=== PATIENT | male | born 1975 | race Caucasian/White ===

== ENCOUNTER 2018-10-09 11:50 | Emergency (ER) | payer OTHER ==
--- NOTE | 2018-10-09 12:10 | ERPHSYRPT ---
- History of Present Illness Time Seen by Provider: 10/09/18 12:10 Source: patient Exam Limitations: no limitations Physician History: 43 y/o white male presents with 4 to 5 day h/o left groin firmness and tenderness. increasing in size. no drainage. has had an abscess drained in the past in same area a couple of times. Timing/Duration: day(s) (4) Quality: painful Severity: mild Location: other (right groin) Possible Causes: no cause identified Associated Symptoms: denies symptoms Allergies/Adverse Reactions: No Known Drug Allergies Allergy (Verified 10/09/18 12:35) - Review of Systems Constitutional: No Symptoms Eyes: No Symptoms Ears, Nose, & Throat: No Symptoms Respiratory: No Symptoms Cardiac: No Symptoms Abdominal/Gastrointestinal: No Symptoms Genitourinary Symptoms: No Symptoms Musculoskeletal: No Symptoms Skin: Other (right groin firmness) Neurological: No Symptoms Psychological: No Symptoms Endocrine: No Symptoms Hematologic/Lymphatic: No Symptoms Immunological/Allergic: No Symptoms - Past Medical History Pertinent Past Medical History: No Neurological History: No Pertinent History ENT History: No Pertinent History Cardiac History: No Pertinent History Respiratory History: No Pertinent History Endocrine Medical History: No Pertinent History Musculoskeletal History: No Pertinent History GI Medical History: No Pertinent History History: No Pertinent History Psycho-Social History: No Pertinent History Male Reproductive Disorders: No Pertinent History - Past Surgical History Neuro Surgical History: No Pertinent History Cardiac: No Pertinent History Respiratory: No Pertinent History Gastrointestinal: No Pertinent History Genitourinary: No Pertinent History Musculoskeletal: No Pertinent History Male Surgical History: No Pertinent History - Nursing Vital Signs Nursing Vital Signs: Initial Vital Signs Temperature 97.9 F 10/09/18 12:10 Pulse Rate 96 H 10/09/18 12:10 Respiratory Rate 18 10/09/18 12:10 Blood Pressure 134/110 10/09/18 12:10 O2 Sat by Pulse Oximetry 99 10/09/18 12:10 Pain Scale Pain Intensity 5 - Physical Exam General Appearance: no apparent distress, alert, anxiety Eye Exam: PERRL/EOMI Ears, Nose, Throat Exam: normal ENT inspection, moist mucous membranes Neck Exam: normal inspection, non-tender, supple, full range of motion Respiratory Exam: normal breath sounds, lungs clear, airway intact, No chest tenderness, No respiratory distress Cardiovascular Exam: regular rate/rhythm Gastrointestinal/Abdomen Exam: soft, normal bowel sounds, No tenderness, No guarding Male Genitalia Exam: other (a vertically oriented 3cm x1.5 cm area of induration between medial thigh and right scrotum. no cellulitis. no abscess. nothing to drain) Rectal Exam: not done Back Exam: normal inspection, normal range of motion, No CVA tenderness, No vertebral tenderness Extremity Exam: normal inspection, normal range of motion, pelvis stable Neurologic Exam: alert, oriented x 3 Skin Exam: normal color, warm, dry, other (see above) Lymphatic Exam: No adenopathy SpO2 Interpretation: normal O2 Delivery: Room Air - Course Nursing assessment & vital signs reviewed: Yes - Progress Progress: unchanged Counseled pt/family regarding: diagnosis, need for follow-up - Departure Time of Disposition: 12:58 Departure Disposition: Home Clinical Impression: Induration of skin Condition: Stable Critical Care Time: No Referrals: NATE DIAS [Primary Care Provider] - Additional Instructions: warm compresses/heating pad on warm setting to area 3 times daily. not directly on skin. follow up with primary doctor for further management Prescriptions: Smz/Tmp Ds Tablet [Bactrim Ds Tablet] 1 udtab PO BID #14 tablet
[2018-10-09 12:22] VITALS: BP 134/110; PULSE 96
[2018-10-09 13:03] VITALS: O2SAT 98
== END 2018-10-09 13:14 | disposition home or self-care (01) ==
LOC: ED 11:50
DX: R23.4 Changes in skin texture (principal); R10.30 Lower abdominal pain, unspecified
CPT/HCPCS: 99283

== ENCOUNTER 2020-01-25 11:36 | Emergency (ER) | payer MEDICAID, OTHER ==
--- NOTE | 2020-01-25 11:45 | ERPHSYRPT ---
- History of Present Illness Time Seen by Provider: 01/25/20 11:45 Historian: patient Exam Limitations: no limitations Physician History: This is a 44-year-old white male who smokes approximately 1/2 pack of cigarettes a day and presents to the emergency department with midsternal chest pain described as a burning sensation that goes all the way through to his lungs and into his back. Patient has no heart history himself. However, his mother and grandfather had heart attacks in their 50s. Patient states that his chest pain began approximately 2:00 this morning. He has had coughing and it has been a productive cough. He does not know whether or not he had a fever but he did feel hot and sweaty. He has chronic shortness of air and that is not any different per his report. He has no nausea vomiting or diarrhea. He has no abdominal pain. He has no myalgias or arthralgias. Timing/Duration: today Activities at Onset: none Quality: burning Location: substernal Chest Pain Radiation: back Severity of Pain-Max: mild Severity of Pain-Current: mild Modifying Factors: Improves With: nothing Associated Symptoms: shortness of breath, cough, No nausea, No vomiting, No abdominal pain, No weakness Prior Chest Pain/Cardiac Workup: no prior chest pain Nitro Today/Relief: no nitro taken today Aspirin Treatment Today: no aspirin today Allergies/Adverse Reactions: buspirone [From BuSpar] Adverse Reaction (Verified 01/25/20 11:53) Travel Risk - International Travel Have you traveled outside of the country in past 3 weeks: No - Coronavirus Screening Are you exhibiting any of the following symptoms?: Yes Symptoms: Cough: New Onset, Shortness of Breath Close contact with a COVID-19 positive Pt in past 14-21 Days: No - Review of Systems Constitutional: No Symptoms Eyes: No Symptoms Ears, Nose, & Throat: No Symptoms Respiratory: Cough Cardiac: Chest Pain Abdominal/Gastrointestinal: No Symptoms Genitourinary Symptoms: No Symptoms Musculoskeletal: No Symptoms Skin: No Symptoms Neurological: No Symptoms Psychological: No Symptoms Endocrine: No Symptoms Hematologic/Lymphatic: No Symptoms Immunological/Allergic: No Symptoms All Other Systems: Reviewed and Negative - Past Medical History Pertinent Past Medical History: No Neurological History: No Pertinent History ENT History: No Pertinent History Cardiac History: No Pertinent History Respiratory History: No Pertinent History Endocrine Medical History: No Pertinent History Musculoskeletal History: No Pertinent History GI Medical History: No Pertinent History History: No Pertinent History Psycho-Social History: No Pertinent History Male Reproductive Disorders: No Pertinent History - Past Surgical History Past Surgical History: No Neuro Surgical History: No Pertinent History Cardiac: No Pertinent History Respiratory: No Pertinent History Gastrointestinal: No Pertinent History Genitourinary: No Pertinent History Musculoskeletal: No Pertinent History Male Surgical History: No Pertinent History - Social History Smoking Status: Current every day smoker Exposure to second hand smoke: No Drug Use: none Patient Lives Alone: No - Nursing Vital Signs Nursing Vital Signs: Initial Vital Signs Temperature 98.2 F 01/25/20 11:37 Pulse Rate 102 H 01/25/20 11:37 Respiratory Rate 16 01/25/20 11:37 Blood Pressure 141/98 01/25/20 11:37 O2 Sat by Pulse Oximetry 96 01/25/20 11:37 Pain Scale Pain Intensity 8 - Physical Exam General Appearance: no apparent distress, alert, anxiety Eye Exam: PERRL/EOMI, eyes nml inspection Ears, Nose, Throat Exam: normal ENT inspection, moist mucous membranes Neck Exam: normal inspection, non-tender, supple, full range of motion Respiratory Exam: normal breath sounds, chest tenderness, lungs clear, airway intact, No respiratory distress Cardiovascular Exam: regular rate/rhythm, normal heart sounds, normal peripheral pulses Gastrointestinal/Abdomen Exam: soft, normal bowel sounds, No tenderness Rectal Exam: not done Back Exam: normal inspection, normal range of motion, No CVA tenderness, No vert ebral tenderness Extremity Exam: normal inspection, normal range of motion, pelvis stable Neurologic Exam: alert, oriented x 3, cooperative, recreation therapy director II-XII nml as tested, normal mood/affect, nml cerebellar function, nml station & gait, sensation nml Skin Exam: normal color, warm, dry Lymphatic Exam: No adenopathy SpO2 Interpretation: normal O2 Delivery: Room Air - Course Nursing assessment & vital signs reviewed: Yes EKG Interpreted by Me: RATE (102), Sinus Tach, NORMAL AXIS, NORMAL INTERVALS, NORMAL QRS, Other (No acute ischemic changes) Ordered Tests: Active Orders 24 hr Category Date Time Status Exhibit Builder STAT Care 01/25/20 11:51 Active EKG-ER Only STAT Care 01/25/20 11:51 Active IV Insertion STAT Care 01/25/20 11:51 Active Pulse Oximetry (ED) STAT Care 01/25/20 11:51 Active CHEST 1 VIEW (PORTABLE) Stat Exams 01/25/20 13:16 Completed CBC W DIFF Stat Lab 01/25/20 12:00 Completed CMP Stat Lab 01/25/20 12:00 Completed D-DIMER QUANTITATIVE Stat Lab 01/25/20 12:00 Completed Manual Differential NC Stat Lab 01/25/20 12:00 Completed NT PRO BNP Stat Lab 01/25/20 12:00 Completed PROTIME WITH INR Stat Lab 01/25/20 12:00 Completed TROPONIN Q3H Lab 01/25/20 12:00 Completed TROPONIN Q3H Lab 01/25/20 15:00 Ordered TROPONIN Q3H Lab 01/25/20 18:00 Ordered TROPONIN Q3H Lab 01/25/20 21:00 Ordered TROPONIN Q3H Lab 01/26/20 00:00 Ordered Medication Summary Generic Name Dose Route Start Last Admin Trade Name Freq PRN Reason Stop Dose Admin Ceftriaxone Sodium/Dextrose 1 g in 50 mls @ 100 mls/hr 01/25/20 14:04 Rocephin 1 Gm-D5w 50 Ml Bag IV 01/25/20 14:33 STAT STA Discontinued Medications Generic Name Dose Route Start Last Admin Trade Name Freq PRN Reason Stop Dose Admin Aspirin 324 mg 01/25/20 11:58 01/25/20 12:21 Baby Aspirin 81 Mg Chew PO 01/25/20 11:59 324 mg STAT ONE Administration Aspirin Confirm 01/25/20 12:20 Baby Aspirin 81 Mg Chew Administered 01/25/20 12:21 Dose 324 mg .ROUTE .STK-MED ONE Methylprednisolone Sodium Succinate 125 mg 01/25/20 14:04 Solu-Medrol 125 Mg IV 01/25/20 14:05 STAT ONE Lab/Rad Data: Laboratory Result Diagrams 01/25/20 12:00 01/25/20 12:00 Laboratory Results 01/25/20 01/25/20 01/25/20 Range/Units 12:00 12:00 12:00 WBC (4.0-10.5) K/mm3 RBC (4.1-5.6) M/mm3 Hgb (12.5-18.0) gm/dl Hct (42-50) % MCV (78-100) fl MCH (26-32) pg MCHC (32-36) g/dl RDW (11.5-14.0) % Plt Count (150-450) K/mm3 MPV (7.5-11.0) fl PT 12.2 (8.83-12.87) SECONDS INR 1.08 (0.8-3.0) D-Dimer 372 (215-500) ng/mL Sodium 140 (137-145) mmol/L Potassium 3.9 (3.5-5.1) mmol/L Chloride 108 H (98-107) mmol/L Carbon Dioxide 25 (22-30) mmol/L Anion Gap 12.0 (5-15) MEQ/L BUN 13 (9-20) mg/dL Creatinine 0.92 (0.66-1.25) mg/dL Estimated GFR > 60.0 ML/MIN Glucose 102 (74-106) mg/dL Calcium 9.4 (8.4-10.2) mg/dL Total Bilirubin 0.40 (0.2-1.3) mg/dL AST 40 (17-59) U/L ALT 44 (0-50) U/L Alkaline Phosphatase 109 (38-126) U/L Troponin I < 0.012 (0.000-0.034) ng/mL NT-Pro-B Natriuret Pep 19.4 (0-450) pg/mL Serum Total Protein 8.1 (6.3-8.2) g/dL Albumin 4.5 (3.5-5.0) g/dL 01/25/20 Range/Units 12:00 WBC 19.6 H (4.0-10.5) K/mm3 RBC 4.59 (4.1-5.6) M/mm3 Hgb 14.8 (12.5-18.0) gm/dl Hct 42.6 (42-50) % MCV 92.8 (78-100) fl MCH 32.2 H (26-32) pg MCHC 34.7 (32-36) g/dl RDW 15.0 H (11.5-14.0) % Plt Count 402 (150-450) K/mm3 MPV 9.5 (7.5-11.0) fl PT (8.83-12.87) SECONDS INR (0.8-3.0) D-Dimer (215-500) ng/mL Sodium (137-145) mmol/L Potassium (3.5-5.1) mmol/L Chloride (98-107) mmol/L Carbon Dioxide (22-30) mmol/L Anion Gap (5-15) MEQ/L BUN (9-20) mg/dL Creatinine (0.66-1.25) mg/dL Estimated GFR ML/MIN Glucose (74-106) mg/dL Calcium (8.4-10.2) mg/dL Total Bilirubin (0.2-1.3) mg/dL AST (17-59) U/L ALT (0-50) U/L Alkaline Phosphatase (38-126) U/L Troponin I (0.000-0.034) ng/mL NT-Pro-B Natriuret Pep (0-450) pg/mL Serum Total Protein (6.3-8.2) g/dL Albumin (3.5-5.0) g/dL - Progress Progress: re-examined Air Movement: good Progress Note: 01/25/20 14:01 Chest x-ray shows no acute pulmonary process Blood Culture(s) Obtained: Yes Antibiotics given: Yes Counseled pt/family regarding: lab results, diagnosis, need for follow-up, rad results - Departure Departure Disposition: Home Clinical Impression: Bronchitis, Leukocytosis Condition: Stable Critical Care Time: No Referrals: NATE DIAS [Primary Care Provider] - Additional Instructions: Drink plenty of fluids. Take your medication as prescribed. Follow-up with your primary care physician for persistent symptoms. Return to the emergency department if symptoms worsen. Quarantine yourself until your COVID-19 test results have been returned to you. Prescriptions: Prednisone 10 mg [Deltasone 10 mg] 10 mg PO TID #12 tablet Hydrocodone Bit/Acetaminophen [Hydrocodone-Acetaminophen Soln] 10 ml PO Q6H #120 ml Azithromycin 250 mg [Zithromax 250 MG TABLET] 250 mg PO ZPACK #6 tablet
[2020-01-25] MEDS ORDERED: BABY ASPIRIN 81 MG CHEW PO ONE (11:58)
[2020-01-25] MEDS ORDERED: BABY ASPIRIN 81 MG CHEW ONE (12:20)
[2020-01-25 12:22] LABS: Hematocrit 42.6 % (42-50); Hemoglobin 14.8 gm/dl (12.5-18.0); Mean Cell Volume 92.8 fl (78-100); Mean Corpuscular Hemoglobin 32.2 pg (26-32); Mean Corpuscular Hgb Concent. 34.7 g/dl (32-36); Mean Platelet Volume 9.5 fl (7.5-11.0); Platelet Count 402 K/mm3 (150-450); Red Blood Count 4.59 M/mm3 (4.1-5.6); White Blood Count 19.6 K/mm3 (4.0-10.5)
[2020-01-25 12:24] LABS: INR 1.08 (0.8-3.0); PROTIME 12.2 SECONDS (8.83-12.87)
[2020-01-25 12:38] LABS: ALBUMIN 4.5 g/dL (3.5-5.0); ALKALINE PHOSPHATASE 109 U/L (38-126); BLOOD UREA NITROGEN 13 mg/dL (9-20); CHLORIDE 108 mmol/L (98-107); Calcium 9.4 mg/dL (8.4-10.2); Carbon Dioxide 25 mmol/L (22-30); Creatinine 1 0.92 mg/dL (0.66-1.25); Glucose 102 mg/dL (74-106); NT PRO BNP 19.4 pg/mL (0-450); Potassium 3.9 mmol/L (3.5-5.1); SGOT/AST 40 U/L (17-59); SGPT/ALT 44 U/L (0-50); SODIUM 140 mmol/L (137-145); Total Protein 8.1 g/dL (6.3-8.2)
[2020-01-25 13:30] VITALS: O2SAT 95
--- NOTE | 2020-01-25 13:52 | XRAY ---
Indication: Cough and chest pain. Comparison: None Portable chest demonstrates normal heart and lungs. Bony thorax intact.
[2020-01-25] MEDS ORDERED: solu-MEDROL 125 MG IV ONE (14:04)
[2020-01-25] MEDS ORDERED: ROCEPHIN 1 Gm-D5w 50 ml Bag** 1 G/50 ML IVPB IV STA (14:04)
[2020-01-25] MEDS ORDERED: solu-MEDROL 125 MG ONE (14:11)
[2020-01-25] MEDS ORDERED: ROCEPHIN 1 Gm-D5w 50 ml Bag** 1 G/50 ML IVPB IV ONE (14:11)
[2020-01-25 14:15] LABS: BAND 1 % (0.0-2.0); Eosinophil 2 % (0.00-3.0); Lymphocytes 31 % (24-44); Monocyte 2 % (0.0-12.0); Neutrophils 64 % (36.-66.); Platelet Estimate NORMAL (NORMAL); Total Cells Counted 100; Toxic Granulation 1+
[2020-01-25 14:21] VITALS: BP 125/94; PULSE 92
== END 2020-01-25 14:42 | disposition home or self-care (01) ==
LOC: ED 11:36
DX: Z11.59 Encounter for screening for other viral diseases (principal)
CPT/HCPCS: 36000; 36415; 71045; 80053; 83880; 84484; 85025; 85379; 85610; 93005; 93041; 94760; 96374; 99284; J0696; J2930; U0002; A9270-GY